=== PATIENT | male | born 1980 | race Caucasian/White ===

== ENCOUNTER 2018-05-17 07:03 | Outpatient (CLI) | payer OTHER ==
[~2018-05-17 07:03] MED LIST: IBUP-1051 PO
[2018-05-17 07:30] LABS: BASOPHILS % (AUTO) 0.4 % (0-1); EOSINOPHILS # (AUTO) 0.4 X10'3 (0-0.9); EOSINOPHILS % (AUTO) 4.1 % (0-6); HEMATOCRIT 48.6 % (42.0-52.0); HEMOGLOBIN 16.8 g/dl (14.0-17.9); LYMPHOCYTES # (AUTO) 3.5 X10'3 (1.1-4.8); LYMPHOCYTES % (AUTO) 40.4 % (21-51); MEAN CORPUSCULAR HEMOGLOBIN 31.9 PG (27.0-31.0); MEAN CORPUSCULAR HGB CONC 34.5 % (33.0-36.5); MEAN CORPUSCULAR VOLUME 92.3 FL (78-98); MEAN PLATELET VOLUME 8.5 FL (7.4-10.4); MONOCYTES # (AUTO) 0.6 X10'3 (0-0.9); MONOCYTES % (AUTO) 6.6 % (2-12); NEUTROPHILS # (AUTO) 4.1 X10'3 (1.8-7.7); NEUTROPHILS % (AUTO) 48.5 % (42-75); PLATELET COUNT 222 X10'3 (140-440); RED BLOOD COUNT 5.27 X10'6 (4.70-6.10); RED CELL DISTRIBUTION WIDTH 12.3 % (11.5-14.5); WHITE BLOOD COUNT 8.6 X10'3 (4.5-11.0)
[2018-05-17 07:45] LABS: ALANINE AMINOTRANSFERASE 66 U/L (12-78); ALBUMIN 3.9 G/DL (3.4-5.0); ALKALINE PHOSPHATASE 61 IU/L (46-116); ANION GAP 4 (8-16); ASPARTATE AMINO TRANSFERASE 21 U/L (10-37); BILIRUBIN,TOTAL 0.4 MG/DL (0.1-1.0); BLOOD UREA NITROGEN 11 MG/DL (7-18); CHLORIDE 103 MMOL/L (99-107); CHOL/HDL RATIO 6.3 (0.00-4.99); CHOLESTEROL 227 MG/DL (0-200); CREATININE 0.92 MG/DL (0.60-1.10); GLUCOSE 97 MG/DL (70-104); HDL CHOLESTEROL 36 MG/DL (35-60); LDL CHOLESTEROL 163 MG/DL (50-100); SODIUM 139 MMOL/L (135-145); TOTAL CARBON DIOXIDE 31.9 MMOL/L (24-32); TOTAL PROTEIN 7.8 G/DL (6.4-8.2); TRIGLYCERIDES 159 MG/DL (20-135); eGFR > 90 ML/MIN
[2018-05-17 07:50] LABS: CLARITY,URINE CLEAR (Clear); COLOR,URINE YELLOW (Yellow); GLUCOSE, URINE NEGATIVE (Neg); KETONES,URINE NEGATIVE (Neg); LEUKOCYTE ESTERASE ,URINE NEGATIVE (Neg); NITRITES, URINE NEGATIVE (Neg); OCCULT BLOOD,URINE NEGATIVE (Neg); PROTEIN,URINE NEGATIVE (Neg); UROBILINOGEN,URINE 0.2 E.U/dL (0.2-1.0)
[2018-05-17 07:51] LABS: UA COLLECTION TYPE CLN CATCH MIDSTREAM
[2018-05-17 07:54] LABS: HEMOGLOBIN A1C 5.4 % (4.5-6.2)
== END 2018-05-17 23:59 | disposition home or self-care (01) ==
LOC: LAB 07:03
PROVIDERS: ATTEND Internal Medicine
DX: E78.5 Hyperlipidemia, unspecified (principal); R94.5 Abnormal results of liver function studies; R73.09 Other abnormal glucose; F17.200 Nicotine dependence, unspecified, uncomplicated
CPT/HCPCS: 36415; 80053; 80061; 81003; 83036; 85025

== ENCOUNTER 2018-07-29 01:03 | Emergency (ER) | payer OTHER ==
[~2018-07-29] VITALS: Ht 172.7 cm; Wt 83.0 kg
[2018-07-29 01:52] LABS: ALANINE AMINOTRANSFERASE 75 U/L (12-78); ALBUMIN/GLOBULIN RATIO 1.1 (1.1-1.5); ALKALINE PHOSPHATASE 74 IU/L (46-116); ANION GAP 8 (8-16); ASPARTATE AMINO TRANSFERASE 23 U/L (10-37); BILIRUBIN,TOTAL 0.5 MG/DL (0.1-1.0); BLOOD UREA NITROGEN 8 MG/DL (7-18); BUN/CREATININE RATIO 8.4 (5.4-32.0); CALCIUM 8.9 MG/DL (8.5-10.1); CHLORIDE 102 MMOL/L (99-107); CREATININE 0.95 MG/DL (0.60-1.10); GLUCOSE 89 MG/DL (70-104); POTASSIUM 3.4 MMOL/L (3.5-5.1); SODIUM 139 MMOL/L (135-145); TOTAL CARBON DIOXIDE 28.7 MMOL/L (24-32); TOTAL PROTEIN 7.5 G/DL (6.4-8.2); eGFR 89 ML/MIN
[2018-07-29 01:59] LABS: RED BLOOD COUNT 5.12 X10'6 (4.70-6.10); WHITE BLOOD COUNT 9.9 X10'3 (4.5-11.0)
[2018-07-29 02:00] LABS: HEMATOCRIT 47.2 % (42.0-52.0); LYMPHOCYTES % (AUTO) 36.2 % (21-51); MEAN CORPUSCULAR HEMOGLOBIN 31.3 PG (27.0-31.0); MEAN CORPUSCULAR HGB CONC 33.9 % (33.0-36.5); MEAN CORPUSCULAR VOLUME 92.3 FL (78-98); MEAN PLATELET VOLUME 9.1 FL (7.4-10.4); MONOCYTES % (AUTO) 5.6 % (2-12); NEUTROPHILS % (AUTO) 54.1 % (42-75); PLATELET COUNT 208 X10'3 (140-440); RED CELL DISTRIBUTION WIDTH 11.6 % (11.5-14.5)
[2018-07-29 02:01] LABS: BASOPHILS % (AUTO) 0.3 % (0-1); EOSINOPHILS # (AUTO) 0.4 X10'3 (0-0.9); EOSINOPHILS % (AUTO) 3.8 % (0-6); LYMPHOCYTES # (AUTO) 3.6 X10'3 (1.1-4.8); MONOCYTES # (AUTO) 0.6 X10'3 (0-0.9); NEUTROPHILS # (AUTO) 5.3 X10'3 (1.8-7.7)
[2018-07-29 03:28] VITALS: BP 141/77
[2018-07-29 03:32] LABS: PARTIAL THROMBOPLASTIN TIME 27 SECONDS (22-32); PROTHROMBIN TIME 10.5 SECONDS (9.0-12.0)
== END 2018-07-29 03:31 | disposition home or self-care (01) ==
LOC: ER 01:03
DX: I48.91 Unspecified atrial fibrillation (principal); F41.9 Anxiety disorder, unspecified; E78.00 Pure hypercholesterolemia, unspecified; G89.29 Other chronic pain; Z79.899 Other long term (current) drug therapy
CPT/HCPCS: 36415; 71045; 80053; 84484; 85025; 85610; 85730; 93005; 99285

== ENCOUNTER 2018-12-29 21:17 | Emergency (ER) | payer OTHER ==
[~2018-12-29] VITALS: Ht 175.3 cm; Wt 97.0 kg
[2018-12-29 21:23] VITALS: BP 133/83
[2018-12-29 22:15] LABS: BASOPHILS % (AUTO) 0.6 % (0-1); EOSINOPHILS # (AUTO) 0.3 X10'3 (0-0.9); EOSINOPHILS % (AUTO) 4.1 % (0-6); HEMATOCRIT 41.6 % (42.0-52.0); HEMOGLOBIN 14.6 g/dl (14.0-17.9); LYMPHOCYTES # (AUTO) 3.7 X10'3 (1.1-4.8); LYMPHOCYTES % (AUTO) 48.3 % (21-51); MEAN CORPUSCULAR HEMOGLOBIN 31.9 PG (27.0-31.0); MEAN CORPUSCULAR VOLUME 91.2 FL (78-98); MEAN PLATELET VOLUME 8.8 FL (7.4-10.4); MONOCYTES # (AUTO) 0.4 X10'3 (0-0.9); MONOCYTES % (AUTO) 5.5 % (2-12); NEUTROPHILS # (AUTO) 3.2 X10'3 (1.8-7.7); NEUTROPHILS % (AUTO) 41.5 % (42-75); PLATELET COUNT 177 X10'3 (140-440); RED BLOOD COUNT 4.57 X10'6 (4.70-6.10); RED CELL DISTRIBUTION WIDTH 12.8 % (11.5-14.5); WHITE BLOOD COUNT 7.6 X10'3 (4.5-11.0)
[2018-12-29 22:24] LABS: PARTIAL THROMBOPLASTIN TIME 28 SECONDS (22-32); PROTHROMBIN TIME 10.5 SECONDS (9.0-12.0)
[2018-12-29 22:27] LABS: ALANINE AMINOTRANSFERASE 41 U/L (12-78); ALBUMIN 3.9 G/DL (3.4-5.0); ALBUMIN/GLOBULIN RATIO 1.1 (1.1-1.5); ALKALINE PHOSPHATASE 57 IU/L (46-116); ANION GAP 6 (8-16); ASPARTATE AMINO TRANSFERASE 17 U/L (10-37); BILIRUBIN,TOTAL 0.3 MG/DL (0.1-1.0); BLOOD UREA NITROGEN 11 MG/DL (7-18); BUN/CREATININE RATIO 15.1 (5.4-32.0); CALCIUM 8.8 MG/DL (8.5-10.1); CHLORIDE 99 MMOL/L (99-107); CREATININE 0.73 MG/DL (0.60-1.10); GLUCOSE 95 MG/DL (70-104); POTASSIUM 3.6 MMOL/L (3.5-5.1); SODIUM 135 MMOL/L (135-145); TOTAL CARBON DIOXIDE 29.9 MMOL/L (24-32); TOTAL PROTEIN 7.3 G/DL (6.4-8.2); eGFR > 90 ML/MIN
== END 2018-12-29 22:57 | disposition home or self-care (01) ==
LOC: ER 21:18
DX: R07.89 Other chest pain (principal); E78.00 Pure hypercholesterolemia, unspecified; G89.29 Other chronic pain; F17.210 Nicotine dependence, cigarettes, uncomplicated
CPT/HCPCS: 36415; 71045; 80053; 84484; 85025; 85610; 85730; 93005; 99284

== ENCOUNTER 2019-11-19 08:23 | Emergency (ER) | payer BC, OTHER ==
[~2019-11-19] VITALS: Ht 175.3 cm; Wt 100.3 kg
--- NOTE | 2019-11-19 09:22 | NUR ---
raised reddened areas to both armpits infra left nipple, fold across waist, left scrotum
--- NOTE | 2019-11-19 09:24 | NUR ---
abdomen appears redened
[2019-11-19 09:28] VITALS: BP 131/87
[2019-11-19] MEDS ORDERED: MINO100T PO (09:56)
== END 2019-11-19 10:21 | disposition home or self-care (01) ==
LOC: EEVIPCON 08:24 → ER 08:24
DX: L08.89 Other specified local infections of the skin and subcutaneous tissue (principal); L73.8 Other specified follicular disorders; E78.00 Pure hypercholesterolemia, unspecified; G89.29 Other chronic pain
CPT/HCPCS: 99283

== ENCOUNTER → 2021-02-19 | Emergency (ER) | payer BC, OTHER ==
[~2021-02-19] VITALS: Ht 175.3 cm; Wt 115.0 kg
[~2021-02-19] MED LIST changes: +HYDR-3972 PO; +MINO100T PO; +ORPH100T2 PO
[2021-02-19 07:04] VITALS: BP 142/85
== END | disposition home or self-care (01) ==
LOC: ER 07:01 → EEVIPCON 07:01
DX: S16.1XXA Strain of muscle, fascia and tendon at neck level, initial encounter (principal); M79.18 Myalgia, other site; M54.6 Pain in thoracic spine; E78.00 Pure hypercholesterolemia, unspecified; G89.29 Other chronic pain; F41.9 Anxiety disorder, unspecified; F32.9 Major depressive disorder, single episode, unspecified; F17.210 Nicotine dependence, cigarettes, uncomplicated; Z72.89 Other problems related to lifestyle; Z79.899 Other long term (current) drug therapy; X58.XXXA Exposure to other specified factors, initial encounter; Y93.89 Activity, other specified; Y92.89 Other specified places as the place of occurrence of the external cause; Y99.8 Other external cause status
CPT/HCPCS: 99283

== ENCOUNTER 2021-04-14 06:39 | Emergency (ER) | payer BC ==
[~2021-04-14] VITALS: Ht 177.8 cm; Wt 111.4 kg
[~2021-04-14 06:39] MED LIST changes: -HYDR-3972 PO
[2021-04-14 06:51] VITALS: BP 141/92
== END 2021-04-14 07:28 | disposition home or self-care (01) ==
LOC: ER 06:39 → EEVIPCON 06:39 → ER 07:28
DX: M77.12 Lateral epicondylitis, left elbow (principal); M79.602 Pain in left arm; M79.18 Myalgia, other site; E78.00 Pure hypercholesterolemia, unspecified; G89.29 Other chronic pain; F41.9 Anxiety disorder, unspecified; F32.9 Major depressive disorder, single episode, unspecified; Z72.89 Other problems related to lifestyle; Z79.2 Long term (current) use of antibiotics; Z79.899 Other long term (current) drug therapy
CPT/HCPCS: 99281

== ENCOUNTER 2021-05-17 08:41 | Emergency (ER) | payer BC, OTHER ==
[~2021-05-17] VITALS: Ht 175.3 cm; Wt 110.4 kg
[~2021-05-17 08:41] MED LIST changes: +LIDOcaine 1% 30ml preserv. free vial ONE
[2021-05-17 08:57] VITALS: BP 116/84
[2021-05-17] MEDS ORDERED: ketorolac tromethamine 15mg/ml inj. IM ONE (09:25)
[2021-05-17] MEDS ORDERED: TETanus/Pertussis (Acell)/Diphther VAC/PF (Tdap-Adult) 0.5ml syringe IMVAC ONE (11:00)
[2021-05-17] MEDS ORDERED: mupirocin 2% ointment 22GM TP ONE (11:45)
[2021-05-17] MEDS ORDERED: CEPH-585 PO (11:47)
[2021-05-17] MEDS ORDERED: HYDR-3965 PO (12:05)
== END 2021-05-17 12:16 | disposition home or self-care (01) ==
LOC: EEVIPCON 08:42 → ER 08:42
DX: S91.112A Laceration without foreign body of left great toe without damage to nail, initial encounter (principal); M79.675 Pain in left toe(s); E78.00 Pure hypercholesterolemia, unspecified; G89.29 Other chronic pain; F41.9 Anxiety disorder, unspecified; F32.9 Major depressive disorder, single episode, unspecified; Z72.89 Other problems related to lifestyle; Z20.3 Contact with and (suspected) exposure to rabies; Z79.2 Long term (current) use of antibiotics; Z79.899 Other long term (current) drug therapy; X58.XXXA Exposure to other specified factors, initial encounter; Y93.89 Activity, other specified; Y92.89 Other specified places as the place of occurrence of the external cause; Y99.8 Other external cause status
CPT/HCPCS: 12001; 73660; 90471; 90715; 96372; 99284; J1885; J2001

== ENCOUNTER 2021-06-10 12:23 | Outpatient (CLI) | payer BC ==
[~2021-06-10 12:23] MED LIST changes: +HYDR-3965 PO; -LIDOcaine 1% 30ml preserv. free vial ONE
[2021-06-10 13:20] LABS: BASOPHILS # (AUTO) 0.1 X10'3 (0-0.2); BASOPHILS % (AUTO) 0.7 % (0-1); EOSINOPHILS # (AUTO) 0.2 X10'3 (0-0.9); EOSINOPHILS % (AUTO) 2.4 % (0-6); HEMATOCRIT 44.7 % (42.0-52.0); HEMOGLOBIN 15.7 g/dl (14.0-17.9); LYMPHOCYTES # (AUTO) 2.9 X10'3 (1.1-4.8); LYMPHOCYTES % (AUTO) 30.4 % (21-51); MEAN CORPUSCULAR HEMOGLOBIN 32.2 PG (27.0-31.0); MEAN PLATELET VOLUME 8.3 FL (7.4-10.4); MONOCYTES # (AUTO) 0.5 X10'3 (0-0.9); MONOCYTES % (AUTO) 5.4 % (2-12); NEUTROPHILS # (AUTO) 5.7 X10'3 (1.8-7.7); NEUTROPHILS % (AUTO) 61.1 % (42-75); PLATELET COUNT 227 X10'3 (140-440); RED BLOOD COUNT 4.86 X10'6 (4.70-6.10); RED CELL DISTRIBUTION WIDTH 13.9 % (11.5-14.5); WHITE BLOOD COUNT 9.4 X10'3 (4.5-11.0)
[2021-06-10 13:23] LABS: CLARITY,URINE CLEAR (Clear); COLOR,URINE YELLOW (Yellow); GLUCOSE, URINE NEGATIVE (Neg); KETONES,URINE NEGATIVE (Neg); LEUKOCYTE ESTERASE ,URINE NEGATIVE (Neg); NITRITES, URINE NEGATIVE (Neg); OCCULT BLOOD,URINE NEGATIVE (Neg); PH,URINE 5.5 (4.8-8.0); PROTEIN,URINE NEGATIVE (Neg); UROBILINOGEN,URINE 0.2 E.U/dL (0.2-1.0)
[2021-06-10 13:26] LABS: UA COLLECTION TYPE CLN CATCH MIDSTREAM
[2021-06-10 13:38] LABS: ALANINE AMINOTRANSFERASE 82 U/L (12-78); ALBUMIN 4.2 G/DL (3.4-5.0); ALBUMIN/GLOBULIN RATIO 1.1 (1.1-1.5); ALKALINE PHOSPHATASE 65 IU/L (46-116); ANION GAP 10 (8-16); ASPARTATE AMINO TRANSFERASE 31 U/L (10-37); BILIRUBIN,TOTAL 0.5 MG/DL (0.1-1.0); BLOOD UREA NITROGEN 10 MG/DL (7-18); BUN/CREATININE RATIO 12.7 (5.4-32.0); CALCIUM 8.8 MG/DL (8.5-10.1); CHLORIDE 104 MMOL/L (99-107); CHOL/HDL RATIO 7.1 (0.00-4.99); CHOLESTEROL 293 MG/DL (0-200); CREATININE 0.79 MG/DL (0.60-1.10); GLUCOSE 94 MG/DL (70-104); HDL CHOLESTEROL 41 MG/DL (35-60); LDL CHOLESTEROL 201 MG/DL (50-100); POTASSIUM 3.9 MMOL/L (3.5-5.1); SODIUM 140 MMOL/L (135-145); TOTAL CARBON DIOXIDE 26.4 MMOL/L (24-32); TOTAL PROTEIN 7.9 G/DL (6.4-8.2); TRIGLYCERIDES 201 MG/DL (20-135); eGFR > 90 ML/MIN
== END 2021-06-10 23:59 | disposition home or self-care (01) ==
LOC: LAB 12:23
PROVIDERS: ATTEND Family Medicine
DX: Z00.00 Encounter for general adult medical examination without abnormal findings (principal)
CPT/HCPCS: 36415; 80053; 80061; 81003; 85025

== ENCOUNTER 2021-07-17 14:40 | Emergency (ER) | payer BC ==
[~2021-07-17] VITALS: Ht 175.3 cm; Wt 110.2 kg
[~2021-07-17 14:40] MED LIST changes: -HYDR-3965 PO
[2021-07-17] MEDS ORDERED: iohexol 300mg/ml 100ml inj. ONE (14:50)
[2021-07-17] MEDS ORDERED: ondansetron/PF 4mg/2ml inj IV ONE (15:15)
[2021-07-17] MEDS ORDERED: morphine 4 MG/ML inj SYRINge IV ONE (15:15)
[2021-07-17 15:26] LABS: ALANINE AMINOTRANSFERASE 36 U/L (12-78); ALBUMIN/GLOBULIN RATIO 1.1 (1.1-1.5); ALKALINE PHOSPHATASE 77 IU/L (46-116); ANION GAP 11 (8-16); ASPARTATE AMINO TRANSFERASE 13 U/L (10-37); BILIRUBIN,TOTAL 0.6 MG/DL (0.1-1.0); BLOOD UREA NITROGEN 11 MG/DL (7-18); BUN/CREATININE RATIO 10.4 (5.4-32.0); CHLORIDE 105 MMOL/L (99-107); CREATININE 1.06 MG/DL (0.60-1.10); GLUCOSE 101 MG/DL (70-104); POTASSIUM 3.9 MMOL/L (3.5-5.1); SODIUM 142 MMOL/L (135-145); TOTAL CARBON DIOXIDE 25.9 MMOL/L (24-32); TOTAL PROTEIN 7.7 G/DL (6.4-8.2); eGFR 77 ML/MIN
[2021-07-17 15:35] LABS: BASOPHILS % (AUTO) 0.2 % (0-1); EOSINOPHILS # (AUTO) 0.6 X10'3 (0-0.9); EOSINOPHILS % (AUTO) 5.3 % (0-6); HEMATOCRIT 43.8 % (42.0-52.0); HEMOGLOBIN 14.8 g/dl (14.0-17.9); LYMPHOCYTES % (AUTO) 17.1 % (21-51); MEAN CORPUSCULAR HEMOGLOBIN 31.8 PG (27.0-31.0); MEAN CORPUSCULAR HGB CONC 33.8 g/dL (33.0-36.5); MONOCYTES # (AUTO) 0.8 X10'3 (0-0.9); MONOCYTES % (AUTO) 7.2 % (2-12); NEUTROPHILS # (AUTO) 8.1 X10'3 (1.8-7.7); NEUTROPHILS % (AUTO) 70.2 % (42-75); PLATELET COUNT 200 X10'3 (140-440); RED BLOOD COUNT 4.66 X10'6 (4.70-6.10); RED CELL DISTRIBUTION WIDTH 12.5 % (11.5-14.5); WHITE BLOOD COUNT 11.5 X10'3 (4.5-11.0)
[2021-07-17 15:38] VITALS: BP 137/90
[2021-07-17 16:14] LABS: CLARITY,URINE CLEAR (Clear); COLOR,URINE YELLOW (Yellow); PH,URINE 7.5 (4.8-8.0); UA COLLECTION TYPE CLN CATCH MIDSTREAM
[2021-07-17 16:15] LABS: GLUCOSE, URINE NEGATIVE (Neg); KETONES,URINE NEGATIVE (Neg); LEUKOCYTE ESTERASE ,URINE NEGATIVE (Neg); NITRITES, URINE NEGATIVE (Neg); OCCULT BLOOD,URINE NEGATIVE (Neg); PROTEIN,URINE 30 mg/dl (Neg); UROBILINOGEN,URINE 0.2 E.U/dL (0.2-1.0)
[2021-07-17 16:17] LABS: MUCUS STRANDS NONE SEEN /LPF (Neg); SQUAMOUS EPITHELIAL CELL,UR FEW /LPF (FEW)
[2021-07-17 16:18] LABS: BACTERIA,URINE NONE SEEN /HPF (Neg); RBC,URINE NONE SEEN /HPF (0-2); WBC,URINE NONE SEEN /HPF (0-4)
[2021-07-17] MEDS ORDERED: HYDR-3965 PO (16:35)
[2021-07-17] MEDS ORDERED: ONDA4TAB6 PO (16:35)
[2021-07-17] MEDS ORDERED: METR-159 PO (16:35)
[2021-07-17] MEDS ORDERED: AMOX-422 PO (16:35)
== END 2021-07-17 16:50 | disposition home or self-care (01) ==
LOC: ER 14:41 → EEVIPCON 14:41 → ER 16:50
DX: K57.92 Diverticulitis of intestine, part unspecified, without perforation or abscess without bleeding (principal); E78.00 Pure hypercholesterolemia, unspecified; F41.9 Anxiety disorder, unspecified; F32.9 Major depressive disorder, single episode, unspecified; Z79.899 Other long term (current) drug therapy
CPT/HCPCS: 36415; 74177; 80053; 81001; 85025; 96374; 96375; 99285; J2270; J2405; Q9967

== ENCOUNTER 2021-11-21 06:19 | Outpatient (CLI) | payer BC ==
[~2021-11-21 06:19] MED LIST changes: +ONDA4TAB6 PO
[2021-11-21 07:31] LABS: CHOL/HDL RATIO 5.8 (0.00-4.99); CHOLESTEROL 263 MG/DL (0-200); HDL CHOLESTEROL 45 MG/DL (35-60); LDL CHOLESTEROL 184 MG/DL (50-100); TRIGLYCERIDES 77 MG/DL (20-135)
== END 2021-11-21 23:59 | disposition home or self-care (01) ==
LOC: LAB 06:19
PROVIDERS: ATTEND Family Medicine
DX: E78.5 Hyperlipidemia, unspecified (principal); N52.9 Male erectile dysfunction, unspecified; R53.83 Other fatigue
CPT/HCPCS: 36415; 80061; 84402; 84403

== ENCOUNTER 2022-01-06 06:31 | Outpatient (CLI) | payer BC ==
[2022-01-07 12:34] LABS: PSA, FREE 0.12 ng/mL
== END 2022-01-06 23:59 | disposition home or self-care (01) ==
LOC: LAB 06:31
PROVIDERS: ATTEND Family Medicine
DX: Z12.5 Encounter for screening for malignant neoplasm of prostate (principal); E29.1 Testicular hypofunction
CPT/HCPCS: 36415; 84153; 84154

== ENCOUNTER 2022-02-18 13:24 | Outpatient (CLI) | payer BC ==
[2022-02-18 14:04] LABS: BASOPHILS % (AUTO) 0.4 % (0-1); EOSINOPHILS # (AUTO) 0.2 X10'3 (0-0.9); EOSINOPHILS % (AUTO) 2.3 % (0-6); HEMATOCRIT 47.5 % (42.0-52.0); HEMOGLOBIN 16.6 g/dl (14.0-17.9); LYMPHOCYTES # (AUTO) 2.8 X10'3 (1.1-4.8); LYMPHOCYTES % (AUTO) 32.3 % (21-51); MEAN CORPUSCULAR HEMOGLOBIN 32.8 PG (27.0-31.0); MEAN CORPUSCULAR VOLUME 93.6 FL (78-98); MEAN PLATELET VOLUME 8.4 FL (7.4-10.4); MONOCYTES # (AUTO) 0.5 X10'3 (0-0.9); MONOCYTES % (AUTO) 5.8 % (2-12); NEUTROPHILS # (AUTO) 5.1 X10'3 (1.8-7.7); NEUTROPHILS % (AUTO) 59.2 % (42-75); PLATELET COUNT 214 X10'3 (140-440); RED BLOOD COUNT 5.08 X10'6 (4.70-6.10); RED CELL DISTRIBUTION WIDTH 12.9 % (11.5-14.5); WHITE BLOOD COUNT 8.7 X10'3 (4.5-11.0)
[2022-02-18 14:06] LABS: CLARITY,URINE CLEAR (Clear); COLOR,URINE YELLOW (Yellow); GLUCOSE, URINE NEGATIVE (Neg); KETONES,URINE NEGATIVE (Neg); LEUKOCYTE ESTERASE ,URINE NEGATIVE (Neg); NITRITES, URINE NEGATIVE (Neg); OCCULT BLOOD,URINE NEGATIVE (Neg); PROTEIN,URINE NEGATIVE (Neg); UROBILINOGEN,URINE 0.2 E.U/dL (0.2-1.0)
[2022-02-18 14:14] LABS: UA COLLECTION TYPE CLN CATCH MIDSTREAM
== END 2022-02-18 23:59 | disposition home or self-care (01) ==
LOC: RAD 13:24
PROVIDERS: ATTEND Family Medicine
DX: Z00.00 Encounter for general adult medical examination without abnormal findings (principal); N28.1 Cyst of kidney, acquired; R39.9 Unspecified symptoms and signs involving the genitourinary system; R30.0 Dysuria
CPT/HCPCS: 36415; 76770; 81003; 85025

== ENCOUNTER 2022-08-05 09:22 | Outpatient (CLI) | payer BC ==
[2022-08-05 10:25] LABS: BASOPHILS % (AUTO) 0.5 % (0-1); EOSINOPHILS # (AUTO) 0.2 X10'3 (0-0.9); EOSINOPHILS % (AUTO) 2.2 % (0-6); HEMATOCRIT 47.4 % (42.0-52.0); HEMOGLOBIN 16.2 g/dl (14.0-17.9); LYMPHOCYTES # (AUTO) 2.6 X10'3 (1.1-4.8); LYMPHOCYTES % (AUTO) 35.9 % (21-51); MEAN CORPUSCULAR HGB CONC 34.3 g/dL (33.0-36.5); MEAN CORPUSCULAR VOLUME 93.5 FL (78-98); MEAN PLATELET VOLUME 8.2 FL (7.4-10.4); MONOCYTES # (AUTO) 0.3 X10'3 (0-0.9); MONOCYTES % (AUTO) 4.1 % (2-12); NEUTROPHILS # (AUTO) 4.2 X10'3 (1.8-7.7); NEUTROPHILS % (AUTO) 57.3 % (42-75); PLATELET COUNT 210 X10'3 (140-440); RED BLOOD COUNT 5.06 X10'6 (4.70-6.10); RED CELL DISTRIBUTION WIDTH 13.4 % (11.5-14.5); WHITE BLOOD COUNT 7.4 X10'3 (4.5-11.0)
[2022-08-05 10:35] LABS: HEMOGLOBIN A1C 5.3 % (4.5-6.2)
[2022-08-05 10:45] LABS: ALANINE AMINOTRANSFERASE 50 U/L (12-78); ALBUMIN 4.1 G/DL (3.4-5.0); ALBUMIN/GLOBULIN RATIO 1.1 (1.1-1.5); ALKALINE PHOSPHATASE 60 IU/L (46-116); ANION GAP 9 (8-16); ASPARTATE AMINO TRANSFERASE 29 U/L (10-37); BILIRUBIN,TOTAL 0.6 MG/DL (0.1-1.0); BLOOD UREA NITROGEN 16 MG/DL (7-18); BUN/CREATININE RATIO 17.4 (5.4-32.0); CHLORIDE 102 MMOL/L (99-107); CHOLESTEROL 296 MG/DL (0-200); CREATININE 0.92 MG/DL (0.60-1.10); GLUCOSE 102 MG/DL (70-104); LDL CHOLESTEROL 210 MG/DL (50-100); POTASSIUM 4.4 MMOL/L (3.5-5.1); SODIUM 140 MMOL/L (135-145); TOTAL CARBON DIOXIDE 28.8 MMOL/L (24-32); TOTAL PROTEIN 7.7 G/DL (6.4-8.2); TRIGLYCERIDES 144 MG/DL (20-135); eGFR > 90 ML/MIN
[2022-08-05 10:46] LABS: CLARITY,URINE CLEAR (Clear); COLOR,URINE YELLOW (Yellow); GLUCOSE, URINE NEGATIVE (Neg); KETONES,URINE NEGATIVE (Neg); LEUKOCYTE ESTERASE ,URINE NEGATIVE (Neg); NITRITES, URINE NEGATIVE (Neg); OCCULT BLOOD,URINE NEGATIVE (Neg); PROTEIN,URINE NEGATIVE (Neg); UROBILINOGEN,URINE 0.2 E.U/dL (0.2-1.0)
[2022-08-05 10:48] LABS: UA COLLECTION TYPE CLN CATCH MIDSTREAM
[2022-08-05 11:41] LABS: CHOL/HDL RATIO 6.9 (0.00-4.99); HDL CHOLESTEROL 43 MG/DL (35-60)
[2022-08-06 16:45] LABS: % FREE PSA 15.6 % (.); PSA, FREE 0.14 ng/mL
== END 2022-08-05 23:59 | disposition home or self-care (01) ==
LOC: LAB 09:22
PROVIDERS: ATTEND Nurse Practitioner
DX: Z00.00 Encounter for general adult medical examination without abnormal findings (principal); F19.11 Other psychoactive substance abuse, in remission; E29.9 Testicular dysfunction, unspecified
CPT/HCPCS: 36415; 80053; 80061; 81003; 82306; 82607; 82746; 83036; 84153; 84154; 84402; 84403; 84439; 84443; 85025

== ENCOUNTER 2023-01-21 06:38 | Outpatient (CLI) | payer BC ==
[2023-01-21 07:10] LABS: CHOL/HDL RATIO 6.4 (0.00-4.99); CHOLESTEROL 268 MG/DL (0-200); HDL CHOLESTEROL 42 MG/DL (35-60); LDL CHOLESTEROL 177 MG/DL (50-100); TRIGLYCERIDES 201 MG/DL (20-135)
== END 2023-01-21 23:59 | disposition home or self-care (01) ==
LOC: LAB 06:38
PROVIDERS: ATTEND Family Medicine
DX: E29.1 Testicular hypofunction (principal)
CPT/HCPCS: 36415; 80061; 84402; 84403

== ENCOUNTER 2023-02-22 09:23 | Emergency (ER) | payer BC ==
[~2023-02-22] VITALS: Ht 175.3 cm; Wt 102.3 kg
[~2023-02-22 09:23] MED LIST changes: -ORPH100T2 PO; +ORPH100T4 PO
[2023-02-22 09:57] VITALS: BP 161/96
== END 2023-02-22 15:28 | disposition left against medical advice (07) ==
LOC: ER 09:24
DX: R51.9 Headache, unspecified (principal); Z53.21 Procedure and treatment not carried out due to patient leaving prior to being seen by health care provider
CPT/HCPCS: 99281

== ENCOUNTER 2023-04-12 05:56 | Emergency (ER) | payer BC ==
[~2023-04-12] VITALS: Ht 175.3 cm; Wt 9.1 kg
[2023-04-12 05:59] VITALS: BP 143/99
[2023-04-12] MEDS ORDERED: NEOM10DR45 RIGHT EAR (07:06)
== END 2023-04-12 07:16 | disposition home or self-care (01) ==
LOC: ER 05:57
DX: H60.91 Unspecified otitis externa, right ear (principal); R13.10 Dysphagia, unspecified; E78.00 Pure hypercholesterolemia, unspecified; F17.200 Nicotine dependence, unspecified, uncomplicated
CPT/HCPCS: 99283

== ENCOUNTER 2023-05-18 06:52 | Outpatient (CLI) | payer BC ==
[2023-05-18 07:31] LABS: BASOPHILS % (AUTO) 0.4 % (0-1); EOSINOPHILS # (AUTO) 0.3 X10'3 (0-0.9); EOSINOPHILS % (AUTO) 3.6 % (0-6); HEMATOCRIT 47.7 % (42.0-52.0); HEMOGLOBIN 16.2 g/dl (14.0-17.9); LYMPHOCYTES # (AUTO) 2.6 X10'3 (1.1-4.8); MEAN CORPUSCULAR HEMOGLOBIN 32.4 PG (27.0-31.0); MEAN CORPUSCULAR VOLUME 95.2 FL (78-98); MEAN PLATELET VOLUME 8.5 FL (7.4-10.4); MONOCYTES # (AUTO) 0.5 X10'3 (0-0.9); MONOCYTES % (AUTO) 6.8 % (2-12); NEUTROPHILS % (AUTO) 54.2 % (42-75); PLATELET COUNT 184 X10'3 (140-440); RED BLOOD COUNT 5.01 X10'6 (4.70-6.10); RED CELL DISTRIBUTION WIDTH 13.3 % (11.5-14.5); WHITE BLOOD COUNT 7.3 X10'3 (4.5-11.0)
[2023-05-18 07:50] LABS: CHOL/HDL RATIO 6.5 (0.00-4.99); CHOLESTEROL 252 MG/DL (0-200); HDL CHOLESTEROL 39 MG/DL (35-60); LDL CHOLESTEROL 135 MG/DL (50-100); TRIGLYCERIDES 284 MG/DL (20-135)
== END 2023-05-18 23:59 | disposition home or self-care (01) ==
LOC: LAB 06:52
PROVIDERS: ATTEND Family Medicine
DX: E29.9 Testicular dysfunction, unspecified (principal); E78.5 Hyperlipidemia, unspecified
CPT/HCPCS: 36415; 80061; 84402; 84403; 85025

== ENCOUNTER 2023-11-12 05:51 | Emergency (ER) | payer BC ==
[~2023-11-12] VITALS: Ht 175.3 cm; Wt 120.5 kg
[2023-11-12 05:54] VITALS: BP 152/98; PULSE 79; RESP 20; TEMP 97.8; O2SAT 98
[2023-11-12] MEDS ORDERED: ketorolac trometh. 30mg/ml inj. IM ONE (06:55)
[2023-11-12] MEDS ORDERED: NAPR-1154 PO (08:07)
== END 2023-11-12 08:13 | disposition home or self-care (01) ==
LOC: ER 05:52 → EEVIPCON 05:52 → ER 08:13
DX: S46.812A Strain of other muscles, fascia and tendons at shoulder and upper arm level, left arm, initial encounter (principal); E78.00 Pure hypercholesterolemia, unspecified; F41.9 Anxiety disorder, unspecified; F32.A Depression, unspecified; Z87.891 Personal history of nicotine dependence; X58.XXXA Exposure to other specified factors, initial encounter; Y93.89 Activity, other specified; Y92.89 Other specified places as the place of occurrence of the external cause; Y99.8 Other external cause status
CPT/HCPCS: 73030; 96372; 99283; J1885

== ENCOUNTER 2024-02-18 05:55 | Emergency (ER) | payer BC ==
[~2024-02-18] VITALS: Ht 175.3 cm; Wt 113.6 kg
[~2024-02-18 05:55] MED LIST changes: -MINO100T PO; +MINO100T10 PO; +NAPR-1154 PO
[2024-02-18 06:05] VITALS: BP 179/89; PULSE 75; RESP 18; TEMP 98.2; O2SAT 94
[2024-02-18] MEDS: dexamethasone sod phosphate 10mg/ml inj PO STA (06:38)
== END 2024-02-18 06:48 | disposition home or self-care (01) ==
LOC: ER 05:55
DX: K12.2 Cellulitis and abscess of mouth (principal); J02.9 Acute pharyngitis, unspecified; E78.00 Pure hypercholesterolemia, unspecified; F41.9 Anxiety disorder, unspecified; F32.A Depression, unspecified; Z87.891 Personal history of nicotine dependence; Z72.89 Other problems related to lifestyle; Z79.1 Long term (current) use of non-steroidal anti-inflammatories (NSAID); Z79.899 Other long term (current) drug therapy
CPT/HCPCS: 99283; J1100

== ENCOUNTER → 2024-05-23 | Outpatient (CLI) | payer BC ==
[2024-05-23 07:22] LABS: BASOPHILS % (AUTO) 0.5 % (0-1); EOSINOPHILS # (AUTO) 0.2 X10'3 (0-0.9); EOSINOPHILS % (AUTO) 3.4 % (0-6); MEAN CORPUSCULAR HEMOGLOBIN 32.7 PG (27.0-31.0); MEAN CORPUSCULAR HGB CONC 34.9 g/dL (33.0-36.5); MEAN CORPUSCULAR VOLUME 93.9 FL (78-98); MEAN PLATELET VOLUME 7.7 FL (7.4-10.4); MONOCYTES # (AUTO) 0.4 X10'3 (0-0.9); MONOCYTES % (AUTO) 7.8 % (2-12); NEUTROPHILS # (AUTO) 2.9 X10'3 (1.8-7.7); NEUTROPHILS % (AUTO) 52.3 % (42-75); PLATELET COUNT 213 X10'3 (140-440); RED CELL DISTRIBUTION WIDTH 13.7 % (11.5-14.5); WHITE BLOOD COUNT 5.6 X10'3 (4.5-11.0)
[2024-05-23 07:27] LABS: BILIRUBIN,URINE NEGATIVE (Neg); CLARITY,URINE CLEAR (Clear); COLOR,URINE YELLOW (Yellow); GLUCOSE, URINE NEGATIVE (Neg); KETONES,URINE NEGATIVE (Neg); LEUKOCYTE ESTERASE ,URINE NEGATIVE (Neg); NITRITES, URINE NEGATIVE (Neg); OCCULT BLOOD,URINE NEGATIVE (Neg); PH,URINE 6.5 (4.8-8.0); PROTEIN,URINE NEGATIVE (Neg); UROBILINOGEN,URINE 0.2 E.U/dL (0.2-1.0)
[2024-05-23 07:32] LABS: UA COLLECTION TYPE VOIDED
[2024-05-23 07:33] LABS: ALANINE AMINOTRANSFERASE 103 U/L (12-78); ALKALINE PHOSPHATASE 58 IU/L (46-116); ANION GAP 6 (8-16); ASPARTATE AMINO TRANSFERASE 31 U/L (10-37); BILIRUBIN,TOTAL 0.7 MG/DL (0.1-1.0); BLOOD UREA NITROGEN 18 MG/DL (7-18); CALCIUM 9.2 MG/DL (8.5-10.1); CHLORIDE 103 MMOL/L (99-107); CHOL/HDL RATIO 6.2 (0.00-4.99); CHOLESTEROL 293 MG/DL (0-200); CREATININE 0.82 MG/DL (0.60-1.10); GLUCOSE 104 MG/DL (70-104); HDL CHOLESTEROL 47 MG/DL (35-60); LDL CHOLESTEROL 174 MG/DL (50-100); POTASSIUM 4.4 MMOL/L (3.5-5.1); SODIUM 138 MMOL/L (135-145); THYROID STIMULATING HORMONE 1.99 ulU/ml (0.34-4.50); TOTAL CARBON DIOXIDE 29.2 MMOL/L (24-32); TOTAL PROTEIN 7.9 G/DL (6.4-8.2); TRIGLYCERIDES 246 MG/DL (20-135); eGFR > 90 ML/MIN
== END | disposition home or self-care (01) ==
LOC: LAB 06:53
PROVIDERS: ATTEND Family Medicine
DX: Z00.01 Encounter for general adult medical examination with abnormal findings (principal); E78.5 Hyperlipidemia, unspecified; N52.9 Male erectile dysfunction, unspecified
CPT/HCPCS: 36415; 80053; 80061; 81003; 84402; 84403; 84436; 84443; 85025

== ENCOUNTER 2024-07-11 12:33 | Emergency (ER) | payer BC ==
[~2024-07-11] VITALS: Ht 175.3 cm; Wt 120.0 kg
[2024-07-11 12:35] VITALS: BP 152/89; PULSE 78; RESP 18; TEMP 98.1; O2SAT 97
== END 2024-07-11 15:18 | disposition home or self-care (01) ==
LOC: ER 12:33
DX: M79.672 Pain in left foot (principal); E78.00 Pure hypercholesterolemia, unspecified; G89.29 Other chronic pain; F41.9 Anxiety disorder, unspecified; F32.A Depression, unspecified; Z72.89 Other problems related to lifestyle; Z79.1 Long term (current) use of non-steroidal anti-inflammatories (NSAID); Z79.899 Other long term (current) drug therapy
CPT/HCPCS: 73630; 99283

== ENCOUNTER 2025-04-04 10:44 | Outpatient (CLI) | payer BC ==
[2025-04-04 11:34] LABS: BASOPHILS % (AUTO) 0.3 % (0-1); EOSINOPHILS # (AUTO) 0.2 X10'3 (0-0.9); EOSINOPHILS % (AUTO) 2.1 % (0-6); HEMATOCRIT 50.1 % (42.0-52.0); HEMOGLOBIN 17.2 g/dl (14.0-17.9); LYMPHOCYTES % (AUTO) 22.4 % (21-51); MEAN CORPUSCULAR HEMOGLOBIN 30.5 PG (27.0-31.0); MEAN CORPUSCULAR HGB CONC 34.3 g/dL (33.0-36.5); MEAN CORPUSCULAR VOLUME 88.9 FL (78-98); MEAN PLATELET VOLUME 7.6 FL (7.4-10.4); MONOCYTES # (AUTO) 0.7 X10'3 (0-0.9); MONOCYTES % (AUTO) 7.5 % (2-12); NEUTROPHILS # (AUTO) 5.9 X10'3 (1.8-7.7); NEUTROPHILS % (AUTO) 67.7 % (42-75); PLATELET COUNT 215 X10'3 (140-440); RED BLOOD COUNT 5.63 X10'6 (4.70-6.10); RED CELL DISTRIBUTION WIDTH 13.4 % (11.5-14.5); WHITE BLOOD COUNT 8.8 X10'3 (4.5-11.0)
--- NOTE | 2025-04-05 13:14 | VASCULAR REPORT ---
Right lower extremity venous duplex Clinical History: EDEMA Comparison: None Findings: Duplex Doppler evaluation of the deep venous system of the right lower extremity from the common femo ral vein to the popliteal vein including color Doppler and spectral/pulsed waveform analysis was perf ormed. The BILATERAL common femoral vein demonstrates appropriate compressibility and waveform variability. There is compressibility/patency of the great saphenous vein at the proximal thigh. The femoral vein demonstrates appropriate compressibility and waveform variability. The deep femoral vein demonstrates appropriate compressibility and waveform variability. The popliteal vein demonstrates appropriate compressibility and waveform variability. There is normal compressibility at the tibioperoneal trunk. Impression: No right femoropopliteal venous thrombosis. If clinical concern/symptoms persist or worsen, short-interval follow-up study is suggested.
== END 2025-04-04 23:59 | disposition home or self-care (01) ==
LOC: VAS 10:44
PROVIDERS: ATTEND Family Medicine
DX: I82.401 Acute embolism and thrombosis of unspecified deep veins of right lower extremity (principal); R60.0 Localized edema
CPT/HCPCS: 36415; 85025; 93971

== ENCOUNTER 2025-09-15 06:54 | Emergency (ER) | payer BC ==
[~2025-09-15] VITALS: Ht 175.3 cm; Wt 106.5 kg
--- NOTE | 2025-09-15 09:41 | Physician Documentation ---
History of Present Illness ~ Chief Complaint: Flank Pain Stated Complaint: BACK PAIN Time Seen by MD: 09:04 OK to notify your PCP?: Yes Primary Medical Doctor: Dr. Islas Source: patient Mode of Arrival: POV Exam Limitations: no limitations HPI Patient presents secondary to right lower back pain. He was sitting in a chair yesterday and reached for his computers mouth and immediately felt right lower back pain. It is localized to the right side. Pain is worse with movement. No history of back pain. No incontinence. No saddle anesthesias reported. No fevers or chills. Was asked, but otherwise denies review of systems. Medication Reconciliation Allergies: Coded Allergies: No Known Allergies (Unverified , 09/15/25) Scheduled Ibuprofen* (Motrin*), 800 MG PO TID Minocycline HCl (Minocycline HCl), 1 TAB PO Q12H Naproxen (Naprosyn), 1 TAB PO Q12HRT Ondansetron Hcl (Zofran), 1 TAB PO Q6H Scheduled PRN Cyclobenzaprine* (Cyclobenzaprine*), 1 TAB PO Q8H PRN for muscle spasms Orphenadrine Citrate (Norflex), 1 TAB PO Q12H PRN PRN for muscle spasms Past Medical History Past Medical History: High Cholesterol, Chronic Pain, Anxiety, Depression Past Surgical History: no surgical history Smoking Status: Former smoker Alcohol Use: Sober Drug Use: none Lives with: Spouse, Family Lives In: Home Occupation: employed Review of Systems ROS Review of systems negative except documented in HPI. Physical Exam Physical Exam Vital Signs: RN Vital Signs have been reviewed: Yes, Temperature: 97.9, Heart Rate: 77, Respiratory Rate: 18, BP: 146/96, Pulse Oximetry: 100, Weight: 106.500 Oxygen Flow Rate: 0 Physical Exam General: Awake, alert, oriented. No apparent distress Respiratory: Lungs are clear to auscultation bilaterally. No respiratory distress. Chest: Normal shape and size. No accessory muscle use. Cardiovascular: Regular rate and rhythm. S1-S2. No murmur, gallop, rub. Back: Normal inspection. There is pain with palpation to the right lower back at the area of the hip. There is no radiation. Range of motion is limited by pain. There is no spinal tenderness or step-off. Psychiatric: Normal mood and affect. Skin: Normal color. Warm and dry. Progress Results/Orders Results/Orders Completed Orders - RADHA AVENDANO NP Ibuprofen Tablet (Motrin Tablet) (09/15/25 09:40) Medications Received in ER Medications (Trade) Dose Ordered Sig/[place] Route PRN Reason Start Time Stop Time Status Last Admin Dose Admin (Motrin tablet) 800 mg ONCE ONCE PO 09/15/25 09:40 09/15/25 09:42 DC 09/15/25 09:47 800 MG Vital Signs 09/15/25 09/15/25 06:56 09:59 Temp 97.9 97.9 Pulse 77 76 Resp 18 16 B/P (MAP) 146/96 124/96 Pulse Ox 100 99 O2 Flow Rate 0 Medical Decision Making Additional information obtaine: N/A Findings Patient presented with right-sided back pain that occurred while reaching for a mouse. He has no history of the same. Has not no high-risk features. There is no clinical suspicion for acute neurologic emergency. No indication for imaging at this time. Pain is located in the musculoskeletal region. He is able to walk. Warning signs and symptoms were reviewed. Discussed self-management. Ibuprofen, rest, ice and gentle stretches. He will return for new or worsening symptoms. Differential Dx:Considerations: DJD, Musculoskeletal pain, Strain Departure Time of Disposition: 09:39 Impression: Primary Impression: Low back pain Qualified Codes: M54.50 - Low back pain, unspecified Condition: Stable Discharge Instructions: Back Exercises, Lumbosacral Strain Additional Instructions: Recommend ice or heat to help with pain. Take ibuprofen with food. You may try muscle relaxers as well. As we discussed I do not recommend you take them and drive. Recommend gentle stretches. Generally, it takes time. Return for new or worsening symptoms. One or more of your blood pressures was greater than 130/80. Recommend that you follow up with your primary care provider with regards to your blood pressure. Recommend home blood pressure monitoring. Referrals: NO PRIMARY CARE PROVIDER (PCP) Prescriptions Cyclobenzaprine* (Cyclobenzaprine*) 10 Mg Tablet 1 TAB PO Q8H PRN for muscle spasms for 7 Days, #21 TAB 0 Refills Prov: RADHA AVENDANO NP 09/15/25 Education Educated: Patient Educated regarding: diagnosis, treatment, need for follow up Signature Scribe Signature: No scribe Attestation: The note accurately reflects work and decisions made by me.Radha Avendano - ALIVIA 09/15/25 12:07 This note was created with the assistance of voice recognition software whereby errors in grammar, syntax, and/or spelling may have occurred despite active pro ofreading efforts by the author. Please do not hesitate to contact the provider for clarification or for questions regarding the content of this document. RADHA AVENDANO NP Sep 15, 2025 09:41
[2025-09-15] MEDS ORDERED: CYCL-1 PO (09:42)
[2025-09-15] MEDS: ibuprofen tablet 400 MG TABLET PO ONE (09:47)
[2025-09-15 09:59] VITALS: BP 124/96; PULSE 76; RESP 16; TEMP 97.9; O2SAT 99
== END 2025-09-15 10:00 | disposition home or self-care (01) ==
LOC: ER 06:54
DX: M54.50 Low back pain, unspecified (principal); G89.29 Other chronic pain; F41.9 Anxiety disorder, unspecified; F32.A Depression, unspecified; E78.00 Pure hypercholesterolemia, unspecified; Z79.899 Other long term (current) drug therapy
CPT/HCPCS: 99283